=== PATIENT | male | born 1950 | race American Indian/Alaskan Native ===

== ENCOUNTER 2016-12-10 09:17 | Emergency (ER) | payer MEDICARE, MEDICAID ==
--- NOTE | 2016-12-10 09:46 | EDM.PDOC ---
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 Family states that he is complaining of chest pain from the waist up and he has a AICD in place however it has been turned off as he is moving towards comfort care measures only he is currently a snf resident and [facility], family would like him checked out to see if he was safe to travel home. They confirm that he is a DNR/DNI - Related Data Allergies Allergy/AdvReac Type Severity Reaction Status Date / Time No Known Allergies Allergy Verified 12/10/16 09:32 Home Meds: Home Meds Aspirin [Ecotrin] 81 mg PO BEDTIME 12/10/16 [History] Carvedilol 6.25 mg PO BEDTIME 12/10/16 [History] Citalopram [Citalopram HBr] 10 mg PO DAILY 12/10/16 [History] Clopidogrel [Plavix] 75 mg PO DAILY 12/10/16 [History] Eplerenone [Inspra] 25 mg PO DAILY 12/10/16 [History] Ergocalciferol (Vitamin D2) [Vitamin D2] 2,000 unit PO DAILY 12/10/16 [History] Gabapentin [Neurontin] 100 mg PO BID 12/10/16 [History] Hydrocodone/Acetaminophen [Hydrocodon-Acetaminophen 5-325] 1 tab PO TID [History] Isosorbide Mononitrate [Imdur] 60 mg PO DAILY 12/10/16 [History] Levothyroxine [Synthroid] 88 mcg PO DAILY 12/10/16 [History] Lisinopril [Prinivil] 2.5 mg PO DAILY 12/10/16 [History] Loratadine 10 mg PO DAILY 12/10/16 [History] Pantoprazole [ProTONIX] 40 mg PO DAILY 12/10/16 [History] Tamsulosin [Flomax] 0.4 mg PO DAILY 12/10/16 [History] atorvaSTATin [Lipitor] 80 mg PO BEDTIME 12/10/16 [History] Past Medical History Cardiovascular History: Reports: CAD, Heart Failure Neurological History: Reports: CVA Social & Family History - Tobacco Use Smoking Status *Q: Former Smoker ED ROS GENERAL - Review of Systems Review Of Systems: Unable To Obtain (Secondary to physical impairment) ED EXAM, GENERAL - Physical Exam Exam: See Below Free Text/Narrative:: General: Male, aphasic, alert HEENT: head is atraumatic normocephalic, eyes pupils equal round reactive to light, sclera clear no conjunctivitis appreciated. Ears tympanic membranes clear and campa landmarks and light reflex are present bilaterally canals are clear. Nose no septal deviation, nares are clear, no blood present. Mouth mucosa is moist and pink no erythema or exudate noted in soft palate, tongue is midline uvula is midline, dentition is poor. Neck: Supple no thyromegaly no tracheal deviation. Nodes: Cervical nodes subclavicular nodes nontender no palpable lymphadenopathy noted. Lungs: clear to auscultation bilaterally with symmetrical respirations, no adventitious noise appreciated. CV: Regular rate and rhythm S1 and S2 appreciated no murmurs rubs or gallops noted. Abdomen: Soft, nontender, no palpable masses or organomegaly appreciated, no distention no guarding bowel sounds are present, . Extremities: No lower extremity edema appreciated, Course - Vital Signs Last Recorded V/S: Last Vital Signs Temp 97.4 F 12/10/16 09:24 Pulse 48 L 12/10/16 09:24 Resp 18 12/10/16 09:24 BP 143/77 H 12/10/16 09:24 Pulse Ox 99 12/10/16 09:24 - Orders/Labs/Meds Orders: Active Orders 24 hr Category Date Time Status Cardiac Monitoring [RC] .As Directed Care 12/10/16 09:38 Active EKG Documentation Completion [RC] ASDIRECTED Care 12/10/16 09:38 Active Acetaminophen/HYDROcodone [[place] 325-5 MG] Med 12/10/16 10:34 Once 1 tab PO ONETIME ONE EKG 12 Lead [EK] Stat Ther 12/10/16 09:38 Ordered Labs: Laboratory Tests 12/10/16 12/10/16 Range/Units 09:40 09:40 WBC 8.1 (4.5-11.0) K/uL RBC 4.55 (4.30-5.90) M/uL Hgb 13.0 (12.0-15.0) g/dL Hct 40.2 (40.0-54.0) % MCV 88 (80-98) fL MCH 29 (27-31) pg MCHC 32 (32-36) % Plt Count 211 (150-400) K/uL Neut % (Auto) 62 (36-66) % Lymph % (Auto) 24 (24-44) % [place] % (Auto) 12 H (2-6) % Eos % (Auto) 2 (2-4) % Baso % (Auto) 0 (0-1) % Sodium 142 (140-148) mmol/L Potassium 3.9 (3.6-5.2) mmol/L Chloride 106 (100-108) mmol/L Carbon Dioxide 28 (21-32) mmol/L Anion Gap 8.1 (5.0-14.0) mmol/L BUN 17 (7-18) mg/dL Creatinine 1.0 (0.8-1.3) mg/dL Est Cr Clr Drug Dosing 69.60 mL/min Estimated GFR (MDRD) > 60 (>60) Glucose 94 (74-106) mg/dL Calcium 8.2 L (8.5-10.1) mg/dL Total Bilirubin 0.5 (0.2-1.0) mg/dL AST 30 (15-37) U/L ALT 40 (12-78) U/L Alkaline Phosphatase 88 (46-116) U/L CK-MB (CK-2) 1.8 (0-3.6) mg/mL Troponin I 0.092 H* (0.000-0.056) ng/mL Total Protein 6.9 (6.4-8.2) g/dL Albumin 3.6 (3.4-5.0) g/dL Globulin 3.3 (2.3-3.5) g/dL Albumin/Globulin Ratio 1.1 L (1.2-2.2) Departure - Departure Time of Disposition: 10:37 Disposition: Home, Self-Care 01 Condition: critical Clinical Impression: Non-STEMI (non-ST elevated myocardial infarction) Forms: ED Department Discharge Additional Instructions: Please followup with your primary care provider as needed - My Orders Last 24 Hours: My Active Orders 12/10/16 09:38 Cardiac Monitoring [RC] .As Directed EKG Documentation Completion [RC] ASDIRECTED EKG 12 Lead [EK] Stat 12/10/16 10:34 Acetaminophen/HYDROcodone [[place] 325-5 MG] 1 tab PO ONETIME ONE - Assessment/Plan Last 24 Hours: My Active Orders 12/10/16 09:38 Cardiac Monitoring [RC] .As Directed EKG Documentation Completion [RC] ASDIRECTED EKG 12 Lead [EK] Stat 12/10/16 10:34 Acetaminophen/HYDROcodone [[place] 325-5 MG] 1 tab PO ONETIME ONE Plan: Assessment Acuity = acute Site and laterality = probable non-STEMI myocardial infarction complicated patient with known history coronary artery disease and congestive heart failure as well as 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 He reaffirms that he does not want any interventions done at this time he was given 1 hydrocodone for pain control he does have hydrocodone at home. I have them followup with his primary care provider as needed Patient was in agreement with the plan all questions were answered, they were instructed to return to the emergency department or call for worsening symptoms. This note was dictated using [employer] voice recognition software please call with any questions.
--- NOTE | 2016-12-10 09:55 | CR ---
Chest 1V Frontal HISTORY: Chest Pain COMPARISON: None FINDINGS: Lungs appear clear and normally aerated. Cardiomediastinal silhouette is within normal limits. There is atherosclerotic calcification in the aortic arch. No vascular redistribution or pleural fluid ca n be seen. Pacemaker generator/AICD overlies the left upper chest. Lead wires appear intact and in satisfactory position. Bony structures and soft tissues are unremarkable. IMPRESSION: Left-sided pacemaker/AICD is noted. Lead wires appear intact. Atherosclerotic aorta. No acute chest abnormality is identified.
[2016-12-10] MEDS ORDERED: Acetaminophen/HYDROcodone 325-5 MG Tab PO ONE (10:34)
[2016-12-10 10:35] VITALS: BP 137/71
== END 2016-12-10 10:50 | disposition home or self-care (01) ==
LOC: JP.ED 09:17
DX: I21.4 Non-ST elevation (NSTEMI) myocardial infarction (principal); I25.10 Atherosclerotic heart disease of native coronary artery without angina pectoris; I50.9 Heart failure, unspecified; Z79.82 Long term (current) use of aspirin; Z79.899 Other long term (current) drug therapy; Z87.891 Personal history of nicotine dependence
CPT/HCPCS: 36415; 71010; 80053; 82553; 84484; 85025; 93005; 99284; 99285; A9270; 93010